=== PATIENT | male | born 1965 | race Caucasian/White ===

== ENCOUNTER 2016-07-25 10:55 | Emergency (ER) | payer SELFPAY ==
[~2016-07-25] VITALS: Ht 180.3 cm; Wt 127.1 kg
[~2016-07-25 10:55] MED LIST: ASPI1TAB69 PO; LISI40TA PO
[2016-07-25 11:02] VITALS: BP 163/112; PULSE 80; RESP 15; TEMP 98.4; O2SAT 96
[2016-07-25 11:40] VITALS: BP 196/104; PULSE 80; RESP 18; O2SAT 97
[2016-07-25] MEDS ORDERED: cloNIDine HCL 0.2 MG TAB PO ONE (11:45)
[2016-07-25] MEDS ORDERED: LISI40TA PO (11:47)
--- NOTE | 2016-07-25 11:47 | PD ---
HPI Chief Complaint: Medication Refill Request Time Seen by Provider: 11:45 Travel History International Travel<30 days: No Contact w/Intl Traveler<30days: No Traveled to known affect area: No History of Present Illness HPI Patient presents with complaints of elevated blood pressure. Reports a mild headache. States she's been out of his blood pressure Medications for week and a half. Seeking a primary care provider. Denies any new chest pain shortness of breath urinary or bowel symptoms. PFSH Past Medical History Asthma: Yes ( A CHILD) Blood Disorders: No Heart Rhythm Problems: No Cancer: No Cardiac Catheterization: Yes Cardiovascular Problems: Yes (high b/p) High Cholesterol: Yes Chest Pain: No Congestive Heart Failure: No Diminished Hearing: No Endocrine: No Genitourinary: No Hypertension: Yes Immune Disorder: No Implanted Vascular Access Dvce: No Musculoskeletal: No Neurologic: No Psychiatric: No Reproductive: No Respiratory: No Pneumonia: Yes ?: Not Past Surgical History Cardiac Surgery: Yes (CARDIAC CATH 2010) Tonsillectomy: Yes Other Surgery: No Social History Alcohol Use: Yes (RARELY) Tobacco Use: Yes (5 CIGARETTES DAILY) Substance Use: No Allergies-Medications (Allergen,Severity, Reaction): Coded Allergies: Penicillin (Verified Allergy, Severe, Anaphylaxis, 07/25/16) Reported Meds & Prescriptions Reported Meds & Active Scripts Active Lisinopril 40 Mg Tab 40 Mg PO DAILY Lisinopril 40 Mg Tab 40 Mg PO DAILY Review of Systems General / Constitutional: No: Fever Eyes: No: Visual changes HENT: No: Headaches Cardiovascular: No: Chest Pain or Discomfort Respiratory: No: Shortness of Breath Gastrointestinal: No: Abdominal Pain Genitourinary: No: Dysuria Musculoskeletal: No: Pain Skin: No Rash Neurologic: No: Weakness Psychiatric: No: Depression Endocrine: No: Polydipsia Hematologic/Lymphatic: No: Easy Bruising Physical Exam Narrative GENERAL: Well-nourished, well-developed patient. SKIN: Warm and dry. HEAD: Normocephalic. EYES: No scleral icterus. No injection or drainage. NECK: Supple, trachea midline. No JVD or lymphadenopathy. CARDIOVASCULAR: Regular rate and rhythm without murmurs, gallops, or rubs. RESPIRATORY: Breath sounds equal bilaterally. No accessory muscle use. GASTROINTESTINAL: Abdomen soft, non-tender, nondistended. MUSCULOSKELETAL: No cyanosis, or edema. BACK: Nontender without obvious deformity. No CVA tenderness. Data Data Last Documented VS Vital Signs Date Time Temp Pulse Resp B/P Pulse Ox O2 Delivery O2 Flow Rate FiO2 07/25/16 12:21 74 18 174/96 99 Room Air 07/25/16 11:02 98.4 Orders Clonidine (Catapres) (07/25/16 11:45) MDM Medical Decision Making Medical Screen Exam Complete: Yes Emergency Medical Condition: Yes Differential Diagnosis Urgent hypertension, medication noncompliance, cephalgia Narrative Course Assessment and plan discussed with patient at bedside. Patient received clonidine with improvement of blood pressure. Headache resolved. Diagnosis Primary Impression: Hypertensive urgency Patient Instructions: General Instructions Additional Instructions: Encouraged medication compliance, encouraged to follow-up with PCP. Med/Other Pt SpecificInfo: Prescription(s) given Scripts Lisinopril 40 Mg Tab40 Mg PO DAILY #30 TAB Ref 0 Prov:Henok Crowley MD 07/25/16 Disposition: 01 DISCHARGE HOME Condition: Good Henok Crowley MD Jul 25, 2016 11:47
[2016-07-25 11:52] VITALS: BP 188/95; PULSE 78; RESP 18; O2SAT 98
[2016-07-25 12:21] VITALS: BP 174/96; PULSE 74; RESP 18; O2SAT 99
== END 2016-07-25 12:40 | disposition home or self-care (01) ==
LOC: PHED 10:55
DX: I16.0 Hypertensive urgency (principal); Z72.0 Tobacco use; E78.00 Pure hypercholesterolemia, unspecified
CPT/HCPCS: 99283

== ENCOUNTER 2016-09-28 09:06 | Emergency (ER) | payer SELFPAY ==
[~2016-09-28] VITALS: Ht 180.3 cm; Wt 124.3 kg
[~2016-09-28 09:06] MED LIST changes: -ASPI1TAB69 PO
[2016-09-28 09:12] VITALS: BP 154/84; PULSE 86; RESP 18; TEMP 98.2; O2SAT 97
[2016-09-28 09:17] VITALS: BP 154/84; PULSE 86; RESP 18; TEMP 98.2; O2SAT 97
[2016-09-28] MEDS ORDERED: ASPI81CH CHEW (09:21)
[2016-09-28] MEDS ORDERED: LISI40TA PO (09:36)
--- NOTE | 2016-09-28 09:36 | PD ---
HPI Chief Complaint: Medication Refill Request Time Seen by Provider: 09:33 Travel History International Travel<30 days: No Contact w/Intl Traveler<30days: No Traveled to known affect area: No History of Present Illness HPI 50-year-old male with history of hypertension, smoking, asthma, presents to the ER today because he states that he notices blood pressure has been high over last 3 days, states that he has been out of blood pressure medications for 2 weeks. He has been going to an urgent care clinic on and off to get his blood pressure medications refilled. He does not have a primary care doctor. He denies any chest pains, trouble breathing currently, or any other issues. Modifying Factors: None Associated Signs & Symptoms: Blood pressure medication refill Risk Factors: History of hypertension PFSH Past Medical History Asthma: Yes ( A CHILD) Blood Disorders: No Heart Rhythm Problems: No Cancer: No Cardiac Catheterization: Yes Cardiovascular Problems: Yes (high b/p) High Cholesterol: Yes Chest Pain: No Congestive Heart Failure: No Diminished Hearing: No Endocrine: No Genitourinary: No Hypertension: Yes Immune Disorder: No Implanted Vascular Access Dvce: No Musculoskeletal: No Neurologic: No Psychiatric: No Reproductive: No Respiratory: No Immunizations Current: Yes Pneumonia: Yes Tetanus Vaccination: > 5 Years Influenza Vaccination: No Past Surgical History Cardiac Surgery: Yes (CARDIAC CATH 2010) Tonsillectomy: Yes Other Surgery: No Social History Alcohol Use: Yes (RARELY) Tobacco Use: Yes (5 CIGARETTES DAILY) Substance Use: No Allergies-Medications (Allergen,Severity, Reaction): Coded Allergies: Penicillin (Verified Allergy, Severe, Anaphylaxis, 09/28/16) Reported Meds & Prescriptions Reported Meds & Active Scripts Active Lisinopril 40 Mg Tab 40 Mg PO DAILY Reported Aspirin 81 Mg Chew 81 Mg CHEW DAILY Review of Systems Except as stated in HPI: all other systems reviewed are Neg Physical Exam Narrative GENERAL: Well-nourished, well-developed middle age white male patient currently none acute distress. Awake and oriented 3. SKIN: Focused skin assessment warm/dry. HEAD: Normocephalic. EYES: No scleral icterus. No injection or drainage. NECK: Supple, trachea midline. No JVD or lymphadenopathy. CARDIOVASCULAR: Regular rate and rhythm without murmurs, gallops, or rubs. RESPIRATORY: Breath sounds equal bilaterally. No accessory muscle use. GASTROINTESTINAL: Abdomen soft, non-tender, nondistended. MUSCULOSKELETAL: No cyanosis, or edema. BACK: Nontender without obvious deformity. No CVA tenderness. Data Data Last Documented VS Vital Signs Date Time Temp Pulse Resp B/P Pulse Ox O2 Delivery O2 Flow Rate FiO2 09/28/16 09:17 98.2 86 18 154/84 97 MDM Medical Decision Making Medical Screen Exam Complete: Yes Emergency Medical Condition: Yes Medical Record Reviewed: Yes Differential Diagnosis Hypertension chronically/request for medication refill Narrative Course Patient is not having active chest pains, shortness of breath, or any other symptoms. He is here to get his blood pressure medications refilled. He has been given refill and was given information for [facility] to obtain a primary care physician for further treatment of his chronic issues. He should return as needed for new issues. The plan was discussed with the patient and he states understanding. Diagnosis Primary Impression: Hypertension Additional Impression: Medication refill Med/Other Pt SpecificInfo: Prescription(s) given Scripts Lisinopril 40 Mg Tab40 Mg PO DAILY #30 TAB Ref 0 Prov:Elsy Meza MD 09/28/16 Disposition: 01 DISCHARGE HOME Condition: Stable Elsy Meza MD September 28, 2016 09:36
== END 2016-09-28 09:51 | disposition home or self-care (01) ==
LOC: PHEFT 09:06
DX: I10 Essential (primary) hypertension (principal); J45.909 Unspecified asthma, uncomplicated; E78.00 Pure hypercholesterolemia, unspecified; F17.210 Nicotine dependence, cigarettes, uncomplicated; Z76.0 Encounter for issue of repeat prescription
CPT/HCPCS: 99283